=== PATIENT | male | born 1975 | race Caucasian/White ===

== ENCOUNTER 2017-11-21 11:49 | Emergency (ER) | payer SELFPAY ==
[~2017-11-21] VITALS: Ht 185.4 cm; Wt 95.0 kg
[~2017-11-21 11:49] MED LIST: ORPH100T2 PO
[2017-11-21 12:00] VITALS: BP 140/70
[2017-11-21] MEDS ORDERED: TETanus/Pertussis (Acell)/Diphther VAC/PF (Tdap-Adult) 0.5ml syringe IM ONE (12:10)
[2017-11-21] MEDS ORDERED: LIDOcaine 1.5% w/epinephrine 1:200,000 5ml ampul IJ ONE (12:10)
[2017-11-21] MEDS ORDERED: CEPH500C5 PO (12:16)
[2017-11-21] MEDS ORDERED: TRAM50TA2 PO (12:16)
== END 2017-11-21 13:09 | disposition home or self-care (01) ==
LOC: ER 11:49
DX: S61.412A Laceration without foreign body of left hand, initial encounter (principal); W26.8XXA Contact with other sharp object(s), not elsewhere classified, initial encounter; Y93.89 Activity, other specified; Y92.89 Other specified places as the place of occurrence of the external cause; Y99.8 Other external cause status
CPT/HCPCS: 12002; 90471; 90715; 99283; A6449; J3490

== ENCOUNTER 2018-07-28 11:19 | Emergency (ER) | payer BC ==
[~2018-07-28] VITALS: Ht 185.4 cm; Wt 90.9 kg
[~2018-07-28 11:19] MED LIST changes: +CEPH500C5 PO
[2018-07-28 11:26] VITALS: BP 147/84
[2018-07-28] MEDS ORDERED: ORPH100T2 PO (12:47)
[2018-07-28] MEDS ORDERED: TRAM50TA2 PO (12:48)
[2018-07-28] MEDS ORDERED: orphenadrine citrate 60mg/2ml inj. IM ONE (12:50)
[2018-07-28] MEDS ORDERED: ketorolac tromethamine 15mg/ml inj. IM ONE (12:50)
== END 2018-07-28 13:07 | disposition home or self-care (01) ==
LOC: ER 11:19
DX: M54.5 Low back pain (principal); Z79.899 Other long term (current) drug therapy
CPT/HCPCS: 96372; 99283; J1885; J2360

== ENCOUNTER 2021-04-20 10:40 | Emergency (ER) | payer BC ==
[~2021-04-20] VITALS: Ht 185.4 cm; Wt 105.0 kg
[~2021-04-20 10:40] MED LIST changes: -CEPH500C5 PO
[2021-04-20 11:40] VITALS: BP 158/104
[2021-04-20] MEDS ORDERED: HYDROcodone/acetaminophen 10/325mg tab PO ONE (12:05)
[2021-04-20] MEDS ORDERED: ondansetron 4mg rapidly disintigrating tab PO ONE (12:05)
[2021-04-20] MEDS ORDERED: ketorolac tromethamine 15mg/ml inj. IM ONE (12:05)
[2021-04-20] MEDS ORDERED: ONDA4TAB6 PO (12:53)
[2021-04-20] MEDS ORDERED: IBUP-1984 PO (12:53)
[2021-04-20] MEDS ORDERED: HYDR-3965 PO (12:53)
== END 2021-04-20 13:39 | disposition home or self-care (01) ==
LOC: ER 10:40
DX: N43.2 Other hydrocele (principal); W19.XXXA Unspecified fall, initial encounter; Y93.89 Activity, other specified; Y92.89 Other specified places as the place of occurrence of the external cause; Y99.8 Other external cause status
CPT/HCPCS: 76870; 93976; 96372; 99284; J1885